=== PATIENT | male | born 1985 | race African-American/Black ===

== ENCOUNTER 2017-05-28 20:27 | Emergency (ER) | payer MEDICAID | END 2017-05-28 20:50 | disposition left against medical advice (07) | LOC: ER 20:27 | DX: R07.9 Chest pain, unspecified (principal); Z53.21 Procedure and treatment not carried out due to patient leaving prior to being seen by health care provider ==

== ENCOUNTER 2017-07-29 14:30 | Emergency (ER) | payer MEDICAID ==
[~2017-07-29] VITALS: Ht 170.2 cm; Wt 69.2 kg
[2017-07-29 14:40] VITALS: BP 130/77
== END 2017-07-29 17:51 | disposition left against medical advice (07) ==
LOC: ER 15:31
DX: M79.1 Myalgia (principal); Z53.21 Procedure and treatment not carried out due to patient leaving prior to being seen by health care provider

== ENCOUNTER 2018-07-01 07:39 | Emergency (ER) | payer MEDICAID ==
[~2018-07-01] VITALS: Ht 170.2 cm; Wt 69.0 kg
[2018-07-01] MEDS ORDERED: MAGNESIUM CITRATE 300ML SOLUTION PO ONE (08:45)
[2018-07-01 11:00] VITALS: BP 129/68
== END 2018-07-01 11:11 | disposition home or self-care (01) ==
LOC: ER 07:39
DX: K59.00 Constipation, unspecified (principal); F41.9 Anxiety disorder, unspecified; I10 Essential (primary) hypertension; J45.909 Unspecified asthma, uncomplicated; F17.200 Nicotine dependence, unspecified, uncomplicated; F12.10 Cannabis abuse, uncomplicated
CPT/HCPCS: 74018; 99283

== ENCOUNTER 2018-08-26 17:48 | Emergency (ER) | payer MEDICAID ==
[~2018-08-26] VITALS: Ht 170.2 cm; Wt 66.0 kg
[2018-08-26] MEDS ORDERED: SODIUM CHLORIDE 0.9% 1,000 ML IV ONE (18:28)
[2018-08-26] MEDS ORDERED: ACETAMINOPHEN 325MG TABLET PO ONE (18:45)
[2018-08-26 19:46] LABS: BASOPHILS % 0.8 % (0.0-2.0); EOSINOPHILS % 5.5 % (0.0-5.0); HEMATOCRIT. 45.5 % (42.0-52.0); HEMOGLOBIN. 15.5 g/dL (14.0-18.0); LYMPHOCYTES % 37.2 % (20.0-50.0); MEAN CORPUSCULAR HEMOGLOBIN 30.2 pg (28.0-32.0); MEAN CORPUSCULAR VOLUME 88.3 fL (80.0-94.0); MEAN PLATELET VOLUME 8.2 fl (7.4-10.4); MONOCYTES % 6.2 % (2.0-8.0); NEUTROPHILS % 50.3 % (40.0-76.0); PLATELET 248 x1000/uL (130-400); RED BLOOD CELL COUNT 5.15 mill/uL (4.7-6.1); RED CELL DISTRIBUTION WIDTH 14.2 % (11.6-14.6)
[2018-08-26 19:52] LABS: CHLORIDE 102 mEq/L (98-107)
[2018-08-26 20:05] LABS: CREATINE KINASE 420 IU/L (39-308)
[2018-08-26] MEDS ORDERED: POTASSIUM CHLORIDE 20MEQ TABLET SR PO ONE (20:15)
[2018-08-26] MEDS ORDERED: IBUPROFEN 400MG TABLET PO ONE (20:15)
[2018-08-26 20:43] VITALS: BP 114/68
== END 2018-08-26 20:51 | disposition home or self-care (01) ==
LOC: ER 17:48
DX: S01.111A Laceration without foreign body of right eyelid and periocular area, initial encounter (principal); S63.91XA Sprain of unspecified part of right wrist and hand, initial encounter; R55 Syncope and collapse; E87.6 Hypokalemia; M25.511 Pain in right shoulder; F17.210 Nicotine dependence, cigarettes, uncomplicated; F12.10 Cannabis abuse, uncomplicated; F41.9 Anxiety disorder, unspecified; J45.909 Unspecified asthma, uncomplicated; R01.1 Cardiac murmur, unspecified; W01.198A Fall on same level from slipping, tripping and stumbling with subsequent striking against other object, initial encounter; Y93.89 Activity, other specified; Y92.89 Other specified places as the place of occurrence of the external cause; Y99.8 Other external cause status
CPT/HCPCS: 29125; 36415; 70450; 71045; 73030; 73130; 80053; 82550; 84484; 85025; 93005; 99284; J7030